=== PATIENT | male | born 1980 | race Caucasian/White ===

== ENCOUNTER 2020-08-27 15:30 | Emergency (ER) | payer OTHER ==
[~2020-08-27 15:30] MED LIST: LEVAQUIN750 MG PO; MUCINEX600 MG PO
[2020-08-27] MEDS ORDERED: HYDROCODON-ACE1 EAC4 PO (17:31)
== END 2020-08-27 17:40 | disposition home or self-care (01) ==
LOC: ER1 15:30
DX: S02.2XXA Fracture of nasal bones, initial encounter for closed fracture (principal); F17.290 Nicotine dependence, other tobacco product, uncomplicated; Z23 Encounter for immunization; W20.8XXA Other cause of strike by thrown, projected or falling object, initial encounter; Y92.009 Unspecified place in unspecified non-institutional (private) residence as the place of occurrence of the external cause
CPT/HCPCS: 70160; 90471; 90715; 99283